=== PATIENT | male | born 1955 | race Caucasian/White ===

== ENCOUNTER 2020-04-16 13:48 | Emergency (ER) | payer MEDICARE ==
[~2020-04-16] VITALS: Ht 177.8 cm; Wt 75.0 kg
[2020-04-16 15:00] VITALS: BP 132/80
[2020-04-16] MEDS ORDERED: LIDOCAINE 1%/EPI 1:100,000 20 ML VIAL. SQ ONE (15:30)
--- NOTE | 2020-04-16 16:58 | PHYS DOC ---
Past Medical History Past Medical History: High Cholesterol, Hypertension, Other Additional Past Medical Histor: SVT, HCL. A FLUTTER Past Surgical History: Tonsillectomy, Other Additional Past Surgical Histo: R AND LEFT HAND, NECK, ABLASION FOR A FLUTTER Smoking Status: Never Smoker Alcohol Use: Occasionally General Adult EDM: Chief Complaint: FOOT INJURY PAIN HPI: HPI: Patient is a 64 year old male who presents to the emergency department for a laceration to the top of his right foot after dropping a fabric knife on it this afternoon. He denies any numbness, tingling, or weakness of the affected extremity, he denies any decreased flexion, or extension of his right toes. Patient states he was sent from urgent care for evaluation because they were concerned about a possible tendon injury. Patient denies any pain. His vaccines are up-to-date. Review of Systems: Review of Systems: Constitutional: Denies fever or chills. [] Musculoskeletal: Denies back pain or joint pain. [] Integument: See HPI Neurologic: Denies headache, focal weakness or sensory changes. [] Psychiatric: Denies depression or anxiety. [] Heart Score: Risk Factors: Risk Factors: DM, Current or recent (<one month) smoker, HTN, HLP, family history of CAD, obesity. Risk Scores: Score 0 - 3: 2.5% MACE over next 6 weeks - Discharge Home Score 4 - 6: 20.3% MACE over next 6 weeks - Admit for Clinical Observation Score 7 - 10: 72.7% MACE over next 6 weeks - Early Invasive Strategies Current Medications: Current Medications Medications (Trade) Dose Ordered Sig/[facility] Start Time Stop Time Status Last Admin Dose Admin Lidocaine/ Epinephrine (LIDOCAINE 1%-EPI 1:100,000 Multi-Dose) 20 ml 1X ONCE 04/16/20 15:30 04/16/20 16:11 DC 04/16/20 16:15 20 ML Allergies: Allergies: Allergies Coded Allergies Type Severity Reaction Last Updated Verified escitalopram Allergy Intermediate INCREASED BP 04/16/20 Yes lisinopril Allergy Intermediate COUGH, CP 04/16/20 Yes Physical Exam: PE: Constitutional: Well developed, well nourished, no acute distress, non-toxic appearance. [] HENT: Normocephalic, atraumatic, bilateral external ears normal, nose normal. [] Eyes: PERRLA, EOMI, conjunctiva normal, no discharge. [] Neck: Normal range of motion, no stridor. [] Cardiovascular:Heart rate regular rhythm Lungs & Thorax: Respirations even and unlabored, no retractions, no respiratory distress Skin: Warm, dry, no erythema, no rash; 2.5 cm laceration to the dorsal aspect of his right foot with no active bleeding [] Extremities: No cyanosis, no edema; R foot: PMS intact, patient is able to move all toes on right foot. [] Neurologic: Alert and oriented X 3, no focal deficits noted. [] Psychologic: Affect normal, judgement normal, mood normal. [] Current Patient Data: Vital Signs: Vital Signs Date Time Temp Pulse Resp B/P (MAP) Pulse Ox O2 Delivery O2 Flow Rate FiO2 04/16/20 15:00 98.1 50 16 132/80 (97) 97 Room Air 98.1 EKG: EKG: [] Radiology/Procedures: Radiology/Procedures: Laceration Repair by me: Anesthesia: 1% lidocaine locally with epinephrine Location: Top of right foot proximal to right great toe Tendon/Joint/Nerves: Tendon visible and intact without any visible laceration or tear; full range of motion of toes of right foot with full extension and flexion and 5/5 strength in toes Foreign body: None detected after copious irrigation and exploration Technique: 5 Simple Interrupted Sutures with 5-0 Prolene Complexity: No subcutaneous sutures/mucosal repair/edge excision Post Closure Length: 2.5 cm Patient's bleeding was easily controlled in the department and there is no indication of anemia. No evidence of compartment syndrome, neurologic injury, vascular injury, open joint, tendon laceration, or foreign body. Patient is appropriate for outpatient follow up. [] Course & Med Decision Making: Course & Med Decision Making Pertinent Labs and Imaging studies reviewed. (See chart for details) Patient is a 64-year-old male who presents to the emergency department with complaints of a laceration to the top of his right foot. Patient declined x- rays. He also declined postop shoe. Laceration repair as documented above. I advised the patient to return to the emergency room or follow-up with his primary care doctor in 10 to 14 days to have the sutures removed. Patient verbalized an understanding of home care, medications, follow-up, and return to ED instructions and was in agreement with the plan of care. [] Dragon Disclaimer: Dragon Disclaimer: This electronic medical record was generated, in whole or in part, using a voice recognition dictation system. Departure Departure Impression: Primary Impression: Laceration of right foot excluding toes without complication Qualified Codes: S91.311A - Laceration without foreign body, right foot, initial encounter Disposition: HOME, SELF-CARE Condition: STABLE Referrals: MAX FAYE (PCP) Patient Instructions: Laceration Care, Adult, [id number] Additional Instructions: Keep the area clean and dry. You may take Tylenol or ibuprofen as needed for pain. Keep the dressing that was placed today on for 24 hours then change the dressing twice a day and apply antibiotic ointment to the area. Follow-up with your primary care doctor, or return to the emergency room in 10-14 days to have the sutures removed, sooner if you develop signs of infection including: redness, warmth, drainage, or a fever. Justicifation of Admission Dx: Justifications for Admission: Justification of Admission Dx: N/A LAURI ARELLANO [employer]CH[employer] Apr 16, 2020 16:57
[2020-04-16] MEDS ORDERED: NEOMY/BACITR/POLYMYXIN OINT PACKET. TP ONE (18:08)
== END 2020-04-16 18:13 | disposition home or self-care (01) ==
LOC: ER 13:48
DX: S91.311A Laceration without foreign body, right foot, initial encounter (principal); E78.00 Pure hypercholesterolemia, unspecified; I10 Essential (primary) hypertension; I48.92 Unspecified atrial flutter; Z88.8 Allergy status to other drugs, medicaments and biological substances; W26.0XXA Contact with knife, initial encounter; Y93.89 Activity, other specified; Y92.89 Other specified places as the place of occurrence of the external cause; Y99.8 Other external cause status
CPT/HCPCS: 12001; 99282; J3490